=== PATIENT | female | born 2000 | race Two or more races ===

== ENCOUNTER 2019-04-04 20:55 | Emergency (ER) | payer MEDICAID ==
[~2019-04-04] VITALS: Ht 152.4 cm; Wt 46.7 kg
--- NOTE | 2019-04-04 22:05 | NUR ---
TO BED 16 AMBULATORY C/O LOW BACK PAIN, LOWER ABD PAIN WITH VAG BLEEDIN X 2-3HRS, 16WKS EGP, A0. PT AAOX4 NO ACUTE DISTRESS NOTED. URINE SAMPLE COLLECTED AND SENT TO [facility].
[2019-04-04] MEDS ORDERED: HYDROMORPHONE 1 MG/1 ML DISP.SYRIN ONE (22:19)
[2019-04-04 22:22] LABS: BASOPHILS # (AUTO) 0.1 /CMM (0.0-0.2); EOSINOPHILS % (AUTO) 5.1 % (0.0-6.0); HEMATOCRIT 38 % (33-45); HEMOGLOBIN 12.7 g/dL (11.5-14.8); LYMPHOCYTES # (AUTO) 1.7 /CMM (0.8-4.8); MEAN CORPUSCULAR HGB CONC 34 g/dl (31.0-36.0); MEAN CORPUSCULAR VOLUME 87 fL (82-100); MONOCYTES # (AUTO) 0.4 /CMM (0.1-1.30); MONOCYTES % (AUTO) 5.8 % (2.0-12.0); NEUTROPHILS # (AUTO) 3.9 /CMM (1.8-8.9); NEUTROPHILS % (AUTO) 61.1 % (43.0-81.0); PLATELET COUNT (AUTO) 337 /CMM (150-450); RED BLOOD CELL COUNT(AUTO) 4.36 MIL/uL (4.0-5.2); WHITE BLOOD COUNT (AUTO) 6.4 K/uL (4.3-11.0)
[2019-04-04] MEDS: HYDROMORPHONE 1 MG/1 ML DISP.SYRIN IV ONE (22:25)
--- NOTE | 2019-04-04 22:26 | NUR ---
PT MEDICATED ORDERED. HERMAN TECH AT BEDSIDE.
[2019-04-04 22:30] LABS: CALCIUM, SERUM 9.4 mg/dL (8.5-10.1); CREATININE 0.6 mg/dL (0.6-1.3); POTASSIUM 3.4 mmol/L (3.5-5.1)
[2019-04-04 22:42] LABS: ALBUMIN 4.3 g/dL (3.4-5.0); BILIRUBIN,DIRECT 0.1 mg/dL (0.0-0.2); BILIRUBIN,TOTAL 0.3 mg/dL (0.2-1.0); TOTAL PROTEIN, SERUM 7.9 g/dL (6.4-8.2)
--- NOTE | 2019-04-04 23:57 | NUR ---
PT RESTING QUIETLY, NO ACUTE DISTRESS NOTED, RESP EVEN AND UNLABORED. PT S/O AT BEDSIDE TO TAKE PT HOME.
--- NOTE | 2019-04-05 00:58 | NUR ---
ER MD HERNDON TALKING TO DR. NOLAN FROM [facility] WORK[facility].
--- NOTE | 2019-04-05 01:39 | NUR ---
IV removed. Catheter intact and site benign. Pressure and 4x4 applied to site. No bleeding noted. Patient discharged to home in stable condition. Written and verbal after care instructions given. Patient verbalizes understanding of instruction. ambulatory with a steady gait noted. advice pt not to drive or operate any machinery due to pt was given narcotic medicine. pt verbalize understanding. pt s/o at bedside to take pt home.
[2019-04-05 01:40] VITALS: BP 112/72
== END 2019-04-05 01:41 | disposition home or self-care (01) ==
LOC: ER 20:55
DX: O03.9 Complete or unspecified spontaneous abortion without complication (principal)
CPT/HCPCS: 36415; 76805; 80048; 80076; 84702; 85025; 85730; 96374; 99284; A6403; J1170

== ENCOUNTER 2020-04-02 18:22 | Emergency (ER) | payer MEDICAID ==
[~2020-04-02] VITALS: Ht 152.4 cm; Wt 43.1 kg
--- NOTE | 2020-04-02 18:28 | NUR ---
PT BIB TO ER BED 16 C/O DIFFUSE ABDOMINAL PAIN AND VAGINAL SPOTTING SINCE THIS MORNING. ALSO NOTED, LLE SWELLING AND BRUISING. PT STATES ITS BEEN 2 DAYS. DENIES GLF. PT IS 1 MONTHS . GOWNED AND PLACED ON MONITOR. VSS. AWAITING MD DENNY.
--- NOTE | 2020-04-02 18:34 | NUR ---
PT CALLED TO TRIAGE, PT NOT IN WAITING ROOM
--- NOTE | 2020-04-02 18:52 | NUR ---
[facility] SPECIAL EQUIPMENT TECHNICIAN AT BEDSIDE FOR EVAL.
[2020-04-02] MEDS ORDERED: MORPHINE SULFATE INJ 4 MG/ML DISP.SYRIN ONE (18:57)
[2020-04-02] MEDS ORDERED: MORPHINE SULFATE INJ 2 MG/ML DISP.SYRIN IV ONE (19:00)
[2020-04-02] MEDS ORDERED: IV NS 0.9% 250 ML BAG IV ONE (19:00)
--- NOTE | 2020-04-02 19:06 | NUR ---
IV LINE STARTED BLOOD DRAWN AND SENT TO LAB.
--- NOTE | 2020-04-02 19:10 | NUR ---
REPORT GIVEN TO BEN LERMA FOR WHITNEY.
[2020-04-02 19:14] LABS: APPEARANCE,URINE Clear (CLEAR); BILIRUBIN,URINE LARGE (NEGATIVE); BLOOD, URINE Large Ery/uL (NEGATIVE); COLOR,URINE Yellow (YELLOW); KETONES,URINE Negative (NEGATIVE); LEUKOCYTE ESTERASE ,URINE Negative (NEGATIVE); NITRITE, URINE Negative (NEGATIVE); PROTEIN,URINE Negative (NEGATIVE); UGLUCOSE Negative (NEGATIVE); UROBILINOGEN,URINE 0.2 EU/dL (0.2)
[2020-04-02 19:24] LABS: ALBUMIN 2.4 g/dL (3.4-5.0); BILIRUBIN,DIRECT 2.5 mg/dL (0.0-0.2); BILIRUBIN,TOTAL 2.9 mg/dL (0.2-1.0); CREATININE 0.6 mg/dL (0.6-1.3); POTASSIUM 3.7 mmol/L (3.5-5.1); TOTAL PROTEIN, SERUM 9.1 g/dL (6.4-8.2)
[2020-04-02 19:27] LABS: CALCIUM, SERUM 9.4 mg/dL (8.5-10.1)
--- NOTE | 2020-04-02 19:35 | NUR ---
LIPASE ORDER DONE ADD-ON PER LAB; SPOKE TO NATI
[2020-04-02 19:41] LABS: BASOPHILS # (AUTO) 0.1 /CMM (0.0-0.2); EOSINOPHILS % (AUTO) 1.1 % (0.0-6.0); HEMATOCRIT 24 % (33-45); LYMPHOCYTES % (AUTO) 92.6 % (20.0-44.0); MEAN CORPUSCULAR HGB CONC 24 g/dl (31.0-36.0); MEAN CORPUSCULAR VOLUME 94 fL (82-100); NEUTROPHILS # (AUTO) 29.5 /CMM (1.8-8.9); NEUTROPHILS % (AUTO) 6.3 % (43.0-81.0); RED BLOOD CELL COUNT(AUTO) 2.51 MIL/uL (4.0-5.2)
[2020-04-02 19:46] LABS: WHITE BLOOD COUNT (AUTO) 465.4 K/uL (4.3-11.0)
[2020-04-02 19:47] LABS: HEMOGLOBIN 5.6 g/dL (11.5-14.8)
[2020-04-02 19:49] LABS: LYMPHOCYTES # (AUTO) 430.8 /CMM (0.8-4.8); PLATELET COUNT (AUTO) 21 /CMM (150-450)
[2020-04-02] MEDS ORDERED: IOHEXOL-300 100 ML VIAL IV ONE (19:57)
[2020-04-02] MEDS ORDERED: IV NS 0.9% 250 ML IV ONE (19:57)
[2020-04-02 19:58] LABS: BACTERIA,URINE Few /HPF (None Seen); WBC,URINE 2-3/HPF /HPF (0-3)
[2020-04-02 19:59] LABS: CALCIUM OXALATE CRYSTALS,UR Few /HPF (None Seen); SQUAMOUS EPITHELIAL CELL,UR Moderate /HPF (None Seen); URINE AMORPHOUS URATE Few /HPF (None Seen)
--- NOTE | 2020-04-02 20:00 | NUR ---
BLOOD COLLECTED AND COVID SWAB COLLECTED SENT TO LAB
--- NOTE | 2020-04-02 20:15 | NUR ---
CALLED [facility], SPOKE TO KARLIE LERMA, FAXED FACESHEET AND CLINICALS
[2020-04-02 20:32] LABS: BLASTS, MANUAL % 18 % (0-0); LYMPHOCYTES % (MANUAL) 67 % (16-48); NEUTROPHILS % (MANUAL) 3 (42-76); REACTIVE LYMPHOCYTES 12 % (0-0)
[2020-04-02] MEDS ORDERED: PIPERACILLIN /TAZOBACTAM 3.375 G in IV D5W 50 ML IV ONE (21:00)
--- NOTE | 2020-04-02 21:46 | NUR ---
CALLED [facility], PER CM CRISTOFER AWAITING FOR DOCTOR TO REVIEW CASE WILL CALL BACK WITH UPDATE
--- NOTE | 2020-04-02 22:12 | NUR ---
CRISTOFER COKER CALLED; ASKED FOR MORE INFO
[2020-04-02] MEDS ORDERED: PIPERACILLIN /TAZOBACTAM 3.375 G VIAL IV ONE (22:30)
--- NOTE | 2020-04-02 22:40 | NUR ---
Call from [facility]. Currently no bed available.
--- NOTE | 2020-04-02 22:47 | NUR ---
CALLED [facility], SPOKE TO GARETH, STATES WILL REVIEW CLINICALS BUT MAY NEED TO WAIT UNTIL MORNING TO VERIFY WITH FINANCIAL DEPT. FAXED FACESHEET AND CLINICALS TO [phone]
--- NOTE | 2020-04-02 22:47 | NUR ---
[facility] called for higher level of care. No beds available.
--- NOTE | 2020-04-02 23:15 | NUR ---
1 UNIT PRBC STARTED. 2ND RN COSIGNED. SEE BLOOD TRANFUSION SHEET.
--- NOTE | 2020-04-02 23:31 | NUR ---
SPOKE TO DWIGHT AT [facility], FAXED FACESHEET AND CLINICALS, AWAITING REVIEW AND CALL BACK
--- NOTE | 2020-04-02 23:58 | NUR ---
Call from [facility] - [facility]. 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
--- NOTE | 2020-04-03 00:35 | NUR ---
DR SKYLER CALZADA PER DR NDIAYE.
--- NOTE | 2020-04-03 00:50 | NUR ---
SPOKE WITH [facility]. UNABLE TO ACCEPT PATIENT TONIGHT.
--- NOTE | 2020-04-03 02:24 | NUR ---
PT SLEEPING AT THIS TIME, NO ACUTE EVENTS NOTED, VSS
[2020-04-03] MEDS ORDERED: MORPHINE SULFATE INJ 4 MG/ML DISP.SYRIN ONE (02:36)
[2020-04-03] MEDS ORDERED: MORPHINE SULFATE INJ 2 MG/ML DISP.SYRIN IV ONE (03:00)
--- NOTE | 2020-04-03 06:03 | NUR ---
DR ASHLEIGH CALZADA PER DR GROVES
--- NOTE | 2020-04-03 06:18 | NUR ---
[facility] called. Facesheet and chart faxed to [phone]
--- NOTE | 2020-04-03 07:30 | NUR ---
RECEIVED REPORT FROM FLORENTIN RHODES FOR WHITNEY. PT IS AAXO4, NOT IN RESPIRATORY DISTRESS, V/S STABLE. KEPT RESTED AND COMFORTABLE. WILL CONTINUE TO MONITOR.
--- NOTE | 2020-04-03 08:10 | NUR ---
Patient does not wish to proceed with medical care recommended by Dr. Marr. Patient given information related to possible complications, up to and including , which could occur as a result of leaving the hospital at this time. Patient verbalizes understanding of risks involved due to leaving against medical advice. Patient has signed AMA form.
--- NOTE | 2020-04-03 08:10 | NUR ---
IV removed. Catheter intact and site benign. Pressure and 4x4 applied to site. No bleeding noted.
[2020-04-03 08:11] VITALS: BP 122/71
== END 2020-04-03 08:12 | disposition left against medical advice (07) ==
LOC: ER 18:22
DX: O9A.111 Malignant neoplasm complicating pregnancy, first trimester (principal); O02.1 Missed abortion; Z3A.08 8 weeks gestation of pregnancy; C91.00 Acute lymphoblastic leukemia not having achieved remission; D69.6 Thrombocytopenia, unspecified; D63.0 Anemia in neoplastic disease; R16.2 Hepatomegaly with splenomegaly, not elsewhere classified; R74.8 Abnormal levels of other serum enzymes; J90 Pleural effusion, not elsewhere classified; Z20.828 Contact with and (suspected) exposure to other viral communicable diseases
CPT/HCPCS: 36415; 36430; 71045; 71260; 74177; 76705; 76805; 80048; 80076; 81001; 83605; 83690; 85025; 85610; 86921; 87040 ×2; 87426; 93005; 93970; 96361; 96365; 96375; 96376; 99291; C9803; J2270 ×2; J2543 ×2; J7030; J7040; J7060; P9016; Q9967; 81000-TC; J7050